=== PATIENT | female | born 1975 | race Caucasian/White ===

== ENCOUNTER 2021-11-22 06:45 | Day surgery (SDC) | payer MEDICAID ==
[~2021-11-22] VITALS: Ht 157.5 cm; Wt 68.0 kg
[2021-11-22] MEDS ORDERED: SIMETHICONE 40 MG/0.6 ML ML ONE (06:55)
[2021-11-22] MEDS: MEPERIDINE 100 MG INJ. 100 MG/ML VIAL ONE ×2 (09:02→09:05)
[2021-11-22] MEDS: MIDAZOLAM HCL 5 MG/5 ML VIAL ONE ×4 (09:02→09:22)
[2021-11-22 13:45] VITALS: BP_SYST 102
== END 2021-11-22 10:30 | disposition home or self-care (01) ==
LOC: SDS 06:45 → SMU 06:46 → SDS 10:30
PROVIDERS: ATTEND Internal Medicine
DX: R19.4 Change in bowel habit (principal); R19.34 Left lower quadrant abdominal rigidity; K64.8 Other hemorrhoids; Z20.822 Contact with and (suspected) exposure to COVID-19; Z79.899 Other long term (current) drug therapy
CPT/HCPCS: 36415 ×2; 45378; 87426; 99152; 99153; G0378; J2175; J2250; U0003